=== PATIENT | female | born 1965 | race Caucasian/White ===

== ENCOUNTER 2017-02-05 22:22 | Emergency (ER) | payer OTHER ==
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
[~2017-02-05 22:22] MED LIST: CYCL5TAB PO; DICY20TA10 PO; GABA-502 PO; OMEP20CA11 PO; TRAM50TA2 PO; VENL150T3 PO
[2017-02-05] MEDS ORDERED: 0.9% Sodium Chloride 1,000 ML IV ONE (22:29)
[2017-02-05 22:35] LABS: Mean Corpuscular Hemoglobin 30.2 pg (27.0-35.0); Mean Corpuscular Volume 87.7 fL (81-100); Platelet Count 392 bil/L (150-400)
[2017-02-05 22:36] LABS: BASOPHILS % (AUTO) 0.2 % (0-3); MONOCYTES % (AUTO) 6.3 % (4-12); NEUTROPHILS % (AUTO) 50.9 % (40-74)
[2017-02-05 22:57] LABS: INR 0.94 ratio
[2017-02-05 23:11] LABS: Magnesium 2.1 mg/dL (1.6-2.6)
[2017-02-05] MEDS ORDERED: Ketamine 10 mg/mL 20 mL Inj IV ONE (23:55)
[2017-02-06] MEDS ORDERED: Ondansetron 2 mg/mL 2 mL Inj IVPUSH ONE (00:10)
[2017-02-06] MEDS ORDERED: FAMO20T PO (02:21)
[2017-02-06] MEDS ORDERED: NAPR500T PO (02:21)
[2017-02-06 02:58] VITALS: BP 137/92; PULSE 104; RESP 20; O2SAT 100
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
== END 2017-02-06 02:44 | disposition home or self-care (01) ==
LOC: SED 22:22
DX: S16.1XXA Strain of muscle, fascia and tendon at neck level, initial encounter (principal); S92.511A Displaced fracture of proximal phalanx of right lesser toe(s), initial encounter for closed fracture; S09.8XXA Other specified injuries of head, initial encounter; S80.211A Abrasion, right knee, initial encounter; S80.212A Abrasion, left knee, initial encounter; V53.6XXA Passenger in pick-up truck or van injured in collision with car, pick-up truck or van in traffic accident, initial encounter; Y92.410 Unspecified street and highway as the place of occurrence of the external cause; Y93.89 Activity, other specified; Y99.8 Other external cause status; M54.30 Sciatica, unspecified side; R10.9 Unspecified abdominal pain; G89.29 Other chronic pain; G47.33 Obstructive sleep apnea (adult) (pediatric)
CPT/HCPCS: 36415; 70450; 71010; 72125; 72170; 73562; 73630; 80053; 83690; 83735; 85025; 85610; 85730; 93005; 96361; 96374; 96375; 99285; G0390; J2405; J7030